=== PATIENT | female | born 1935 | race Caucasian/White ===

== ENCOUNTER 2016-11-10 04:05 | Inpatient (IN) | payer MEDICARE ==
[~2016-11-10] VITALS: Ht 160 cm; Wt 42.0 kg
[2016-11-10] VITALS (69 sets, daily range): BP systolic 0–178; RESP 0–42; TEMP 97.5–100.5; Ht 160 cm; Wt 42.0 kg
[2016-11-10] MEDS ORDERED: ONDANSETRON 4 MG VIAL IV PUSH PRN (04:10)
[2016-11-10] MEDS ORDERED: ACETAMINOPHEN 325 MG TAB PO PRN (04:10)
[2016-11-10] MEDS ORDERED: PROMETHAZINE 6.25 MG/5 ML PO PRN (07:50)
[2016-11-10] MEDS ORDERED: SODIUM CHLORIDE 0.9% 1,000 ML IV SCH (07:50)
[2016-11-10] MEDS ORDERED: LEVOTHYROXINE 0.15 MG TAB PO SCH (08:01)
[2016-11-10] MEDS ORDERED: PANTOPRAZOLE 40 MG TAB PO SCH (08:02)
[2016-11-10] MEDS ORDERED: LORAZEPAM 2 MG/ML VIAL IV ONE (08:35)
[2016-11-10] MEDS: PREDNISONE 5 MG TAB PO SCH ×2 (08:37→09:00)
[2016-11-10] MEDS ORDERED: MEGESTROL ACE 40 MG TAB PO SCH (09:00)
[2016-11-10] MEDS ORDERED: AMIODARONE 200 MG TAB PO SCH (09:00)
[2016-11-10] MEDS ORDERED: FLUOXETINE 20 MG CAP PO SCH (09:00)
[2016-11-10] MEDS ORDERED: METOPROLOL TART 50 MG TAB PO SCH (09:00)
[2016-11-10] MEDS ORDERED: ALBUMIN HUMAN 25GM (25%) 100 ML IV PRN (09:20)
[2016-11-10] MEDS: ALBUMIN HUMAN 25GM (25%) 100 ML IV PRN ×5 (09:26→11:19)
[2016-11-10] MEDS ORDERED: NOREPINEPHRINE 16 MG in DEXTROSE 5% 234 ML IV SCH (09:40)
[2016-11-10] MEDS ORDERED: NOREPINEPHRINE 1 MG/ML 4 ML VIAL IV ONE (09:50)
[2016-11-10] MEDS ORDERED: PROPOFOL 100 ML 100 ML IV PRN (11:05)
[2016-11-10] MEDS ORDERED: *PATIENT RECEIVING TUBE FEEDS, ASSESS/ADJUST MEDICATIONS NG SCH (11:30)
[2016-11-10] MEDS ORDERED: ATROPINE 1 MG/10 ML SYRINGE IV ONE (11:48)
[2016-11-10] MEDS ORDERED: ACETAMINOPHEN 160 MG/5 ML UDC NG PRN (11:50)
[2016-11-10] MEDS ORDERED: SOD BICARB 8.4% SYR 50 ML ONE (11:50)
[2016-11-10] MEDS ORDERED: EPINEPHrine 1:1,000 4 MG in SODIUM CHLORIDE 0.9% 250 ML IV SCH (12:00)
[2016-11-10] MEDS ORDERED: ETOMIDATE 2 MG/ML VIAL IV ONE (12:01)
[2016-11-10] MEDS ORDERED: MIDAZOLAM HCL 5 MG/5 ML VIAL ONE (12:01)
[2016-11-10] MEDS ORDERED: DEXTROSE 50% 50 ML ONE (14:20)
[2016-11-10] MEDS: DEXTROSE 50% SYRINGE 50 ML IV PRN ×2 (14:49→17:39)
[2016-11-10] MEDS ORDERED: [UNRECOGNIZED DRUG - OTHER] XX ONE (14:55)
[2016-11-10] MEDS ORDERED: hePARIN 1,000 UNITS/ML (PORCINE) 10 ML ONE (16:55)
[2016-11-10] MEDS ORDERED: PHARMACY TO DOSE VANCOMYCIN IV SCH (17:00)
[2016-11-10] MEDS ORDERED: PHARMACY TO DOSE CEFEPIME IV SCH (17:00)
[2016-11-10] MEDS ORDERED: FENTANYL DRIP 50 ML IV PRN (17:00)
[2016-11-10] MEDS ORDERED: FENTANYL DRIP 50 ML IV ONE (17:02)
[2016-11-10] MEDS ORDERED: ATROPINE 1% OP SOLN SL PRN (17:50)
[2016-11-10] MEDS ORDERED: MORPHINE 2 MG/ML SYR IV PRN (17:50)
[2016-11-10] MEDS ORDERED: LORAZEPAM 2 MG/ML VIAL IV PRN (17:50)
[2016-11-10] MEDS ORDERED: VANCOMYCIN 750 MG in SODIUM CHLORIDE 0.9% 250 ML IV ONE (18:00)
[2016-11-10] MEDS ORDERED: CEFEPIME 1,000 MG in SODIUM CHLORIDE 0.9% 100 ML IV ONE (19:00)
[2016-11-10] MEDS ORDERED: GABAPENTIN 100 MG CAP PO SCH (21:00)
[2016-11-10] MEDS ORDERED: METOPROLOL TART 50 MG TAB NG SCH (21:00)
[2016-11-11] MEDS ORDERED: CHLORHEXIDINE 0.12% ORAL CARE FOR VENT PATIENTS 15 ML SWAB SCH
[2016-11-11] MEDS ORDERED: LANSOPRAZOLE 30 MG/10 ML NG SCH (07:00)
[2016-11-11] MEDS ORDERED: LEVOTHYROXINE 0.15 MG TAB NG SCH (07:00)
[2016-11-11] MEDS ORDERED: FLUOXETINE 20 MG CAP NG SCH (09:00)
[2016-11-11] MEDS ORDERED: AMIODARONE 200 MG TAB NG SCH (09:00)
[2016-11-11] MEDS ORDERED: CEFEPIME 500 MG in SODIUM CHLORIDE 0.9% 100 ML IV SCH (19:00)
== END 2016-11-10 18:09 | disposition expired | DRG 291 ==
LOC: CCU 06:26
PROVIDERS: ADMIT Internal Medicine Nephrology; ATTEND Internal Medicine Nephrology
PROC: 5A1935Z Respiratory Ventilation, Less than 24 Consecutive Hours (ICD-10-PCS; principal; 2016-11-10)
PROC: 0BH17EZ Insertion of Endotracheal Airway into Trachea, Via Natural or Artificial Opening (ICD-10-PCS; 2016-11-10)
PROC: 5A1D00Z (ICD-10-PCS; 2016-11-10)
DX: I13.2 Hypertensive heart and chronic kidney disease with heart failure and with stage 5 chronic kidney disease, or end stage renal disease (principal); J96.02 Acute respiratory failure with hypercapnia; R57.0 Cardiogenic shock; J96.01 Acute respiratory failure with hypoxia; J90 Pleural effusion, not elsewhere classified; N18.6 End stage renal disease; I48.0 Paroxysmal atrial fibrillation; F03.90 Unspecified dementia, unspecified severity, without behavioral disturbance, psychotic disturbance, mood disturbance, and anxiety; E46 Unspecified protein-calorie malnutrition; G62.9 Polyneuropathy, unspecified; I50.33 Acute on chronic diastolic (congestive) heart failure; Z68.1 Body mass index [BMI] 19.9 or less, adult; Z78.1 Physical restraint status; Z99.2 Dependence on renal dialysis; Z66 Do not resuscitate; M10.9 Gout, unspecified; E03.9 Hypothyroidism, unspecified
CPT/HCPCS: 36600; 71010; 80053; 80069; 82553; 82803; 82947; 84484; 85007; 85027; 94002; 94660; 94799; 99291